=== PATIENT | female | born 2000 | race Caucasian/White ===

== ENCOUNTER 2023-05-31 12:35 | Emergency (ER) | payer BC ==
[~2023-05-31] VITALS: Ht 160 cm; Wt 78.9 kg
[2023-05-31 13:13] LABS: BASOPHILS # (AUTO) 0.1 K/uL (0.0-0.2); BASOPHILS % (AUTO) 0.8 % (0.0-2.0); EOSINOPHILS # (AUTO) 0.6 K/uL (0.0-0.7); EOSINOPHILS % (AUTO) 7.8 % (0.0-6.0); HEMATOCRIT 41 % (33-45); HEMOGLOBIN 13.2 g/dL (11.5-14.8); LYMPHOCYTES % (AUTO) 25.2 % (20.0-44.0); MEAN CORPUSCULAR HEMOGLOBIN 30 PG (26.0-33.0); MEAN CORPUSCULAR HGB CONC 33 g/dl (31.0-36.0); MEAN CORPUSCULAR VOLUME 91 fL (82-100); MONOCYTES # (AUTO) 0.4 K/uL (0.1-1.30); NEUTROPHILS # (AUTO) 4.9 K/uL (1.8-8.9); NEUTROPHILS % (AUTO) 61.2 % (43.0-81.0); PLATELET COUNT (AUTO) 285 K/uL (150-450); RED BLOOD CELL COUNT(AUTO) 4.44 MIL/uL (4.0-5.2); RED CELL DISTRIBUTION WIDTH 14.6 % (11.5-15.0)
[2023-05-31 13:26] LABS: PREGNANCY TEST URINE QUAL NEGATIVE (NEGATIVE)
[2023-05-31] MEDS ORDERED: CT SWABBABLE VALVE TRANS SET 1 EA INFUS.SET MC ONE (13:29)
[2023-05-31] MEDS ORDERED: IOHEXOL-350 100 ML VIAL IV ONE (13:29)
[2023-05-31] MEDS ORDERED: IV NS 0.9% 250 ML IV ONE (13:29)
[2023-05-31] MEDS ORDERED: ALBU18HF2 INH (16:13)
[2023-05-31 16:19] LABS: CALCIUM, SERUM 9.3 mg/dL (8.5-10.1); CREATININE 0.9 mg/dL (0.6-1.3); POTASSIUM 3.9 mmol/L (3.5-5.1)
[2023-05-31 16:30] VITALS: BP 111/68; TEMP 98.3; O2SAT 98
[2023-06-02] MEDS ORDERED: ALBU8.5H8 INH (16:04)
== END 2023-05-31 16:31 | disposition home or self-care (01) ==
LOC: ER 12:45
DX: R06.00 Dyspnea, unspecified (principal); J45.909 Unspecified asthma, uncomplicated; Z60.2 Problems related to living alone
CPT/HCPCS: 99285; 71275; 85025; 80048; 84703; 36415; J7050; Q9967